=== PATIENT | male | born 1985 | race African-American/Black ===

== ENCOUNTER → 2017-05-25 | Outpatient (CLI) | payer OTHER ==
--- NOTE | 2017-05-27 12:26 | RAD ---
Two views of the right knee Indication: Knee pain after fall Findings: There is no fracture or dislocation within the right knee. There is mild prepatellar soft tissue swelling suggesting contusion. Increased osseous excrescence of the inferior aspect of the pat ronnie likely represents sequela of chronic patellar sleeve avulsion injury or Sinding Hernadez Kemar pathology. No acute patellar fracture or malpositioning. No degenerative change within the patellofe moral or femorotibial compartments. Impression: See above. Reported By:
== END | disposition home or self-care (01) ==
LOC: RAD 16:18
PROVIDERS: ATTEND Obstetrics & Gynecology Obstetrics
DX: S89.81XA Other specified injuries of right lower leg, initial encounter (principal); X58.XXXA Exposure to other specified factors, initial encounter; R60.0 Localized edema
CPT/HCPCS: 73560